=== PATIENT | male | born 1975 | race Caucasian/White ===

== ENCOUNTER 2023-12-27 22:43 | Emergency (ER) | payer OTHER, SELFPAY ==
[2023-12-27 23:05] VITALS: BP 127/83
[2023-12-28 00:08] LABS: % Basophils 0.7 % (0-2); % Eosinophils 1.6 % (0-6); % Immature Granulocytes 0.3 % (0-0.5); % Lymphocytes 28.5 % (20.5-51.1); % Monocytes 10.5 % (1.7-9.3); % Neutrophils 58.4 % (42.2-75.2); Absolute Basophils 0.1 10^3/uL (0-0.2); Absolute Eosinophils 0.1 10^3/uL (0-0.7); Absolute Lymphocytes 2.2 10^3/uL (1.2-3.4); Absolute Monocytes 0.8 10^3/uL (0.1-0.6); Absolute Neutrophils 4.5 10^3/uL (1.4-6.5); Hematocrit 39.7 % (39.0-52.0); Hemoglobin 13.8 g/dL (13.0-18.0); Mean Corp Hgb Conc. 34.8 g/dL (33.0-37.0); Mean Corpuscular Hgb 28.7 pg (27.0-31.0); Mean Corpuscular Volume 82.5 fL (80.0-94.0); Mean Platelet Volume 9.3 fL (7.4-10.4); Nucleated Red Blood Cells % 0 % (-); Platelet Count 237 10^3/uL (130-400); Red Blood Cell Count 4.81 10^6/uL (4.70-6.10); Red Cell Dist. Width 12.5 % (11.5-14.5); White Blood Cell Count 7.7 10^3/uL (4.8-10.8)
[2023-12-28 00:09] LABS: Urine Albumin Negative (Neg - Trace); Urine Bilirubin Negative (Negative); Urine Character Clear (Clear); Urine Color Yellow; Urine Glucose Negative (Negative); Urine Ketone Negative (Negative); Urine Leukocyte Negative (Negative); Urine Nitrite Negative (Negative); Urine Occult Blood Negative (Negative); Urine Urobilinogen 1+ (Neg - 1+)
[2023-12-28 00:26] LABS: ALT (SGPT) 23 U/L (0-50); AST (SGOT) 29 U/L (17-59); Albumin 5.1 g/dl (3.5-5.0); Alkaline Phosphatase 46 U/L (38-126); Blood Urea Nitrogen 17 mg/dl (9-20); Calcium 10.2 mg/dl (8.4-10.2); Carbon Dioxide 30 mmol/L (22-30); Chloride 100 mmol/L (98-107); Glucose 106 mg/dl (70-99); Potassium 3.8 mmol/L (3.5-5.1); Sodium 141 mmol/L (135-145); Total Bilirubin 0.9 mg/dl (0.2-1.3); Total Protein 7.6 g/dl (6.3-8.2); eGFR > 60.00
--- NOTE | 2023-12-28 00:37 | ED.GENMED ---
History of Present Illness
General
Chief Complaint: Anxiety
Time Seen by Provider: 12/28/23 00:37
History of Present Illness
History of Present Illness:
TIME OF INITIAL ENCOUNTER: 12:40 AM
HPI: The patient is been feeling anxious over the past 10 days. He has a sensation of throat closure, chest discomfort. He has been pacing at nighttime. He cannot sleep tonight. He did take a Xanax 0.25 mg as prescribed by his primary care
doctor at about 5 PM tonight but this did not has any effect. He has no increased amount of stressors.
EXAM:
GENERAL: Well appearing in no distress
HEENT: Moist oral mucosa
CARDIOVASCULAR: No murmurs, normal heart rate, regular rhythm, No chest wall tenderness
PULMONARY: No respiratory distress, breath sounds are clear and equal
ABDOMEN: Soft with no peritoneal signs, no tenderness
NEUROLOGIC: Excellent strength all extremities, no coordination deficits
PSYCHIATRIC: Appropriate mental status, normal insight and judgement, he does not appear particularly anxious
EXTREMITIES: Nontender, no edema, moves all extremities equally
SKIN: No rash, no lesions
NUMBER AND COMPLEXITY OF PROBLEMS ADDRESSED AT THE ENCOUNTER
� Chronic conditions affecting care: No significant past medical history
� Acute Exacerbation and/or Progression of Chronic Illness: This is an acute problem
� Differential Diagnosis includes: Anxiety, insomnia, lab abnormality
AMOUNT AND/OR COMPLEXITY OF DATA TO BE REVIEWED AND ANALYZED
� I performed an independent evaluation of and my interpretation is:
EKG: Sinus 65, normal axis, no acute ST abnormality
CT:
X-rays:
Laboratory Studies: CBC and chemistries unremarkable, urinalysis negative
Other:
� Review of other/old records: I reviewed records, the patient had colonoscopy in 2022
� Clinical information was obtained by an independent historian: I spoke to at bedside
� Prescriptions/Medications Considered but not given:
� Further testing considered but not performed:
RISK OF COMPLICATIONS AND/OR MORBIDITY OR MORTALITY OF PATIENT MANAGEMENT
� Social determinants of health affecting care: Lives at home
� Discussion with other providers:
� Escalation of care including admission/observation vs risk of discharge considered: The patient just darted taking Zoloft and describes symptoms consistent with anxiety. Will give a one-time dose of higher dose Xanax now.
Recommended [id number] sleep aid at home. Reassurance given that his blood work and EKG are normal.
ANY OTHER UPDATES:
Phy Exam
Physical Exam
Physical Exam:
See HPI
Course
Orders/Labs/Results
Orders:
Orders
12/27/23 23:46
Electrocardiogram (*1) Urgent
Reason for Study: Hypertension, Benign
Cardiology Consult: Unknown
EKG- Treatment ONCE
12/27/23 23:56
Complete Blood Count/With Diff Urgent
Comprehensive Metabolic Panel Urgent
Urinalysis Reflex To Culture Urgent
Date Specimen was Collected: 12/27/23
Time Specimen was Collected: 23:46
12/28/23 00:55
Alprazolam [Xanax] 1 mg PO NOW STA
Abnormal Lab Results
12/27/23
23:56
Absolute Monos (auto) 0.8 H 10^3/uL
(0.1-0.6)
Monocytes % 10.5 H %
(1.7-9.3)
Glucose 106 H mg/dl
(70-99)
Albumin 5.1 H g/dl
(3.5-5.0)
12/27/23 23:56
12/27/23 23:56
Vital Signs
Initial and Last Documented VS:
Initial Vital Signs
Temp Pulse Resp BP Pulse Ox
98.5 F 75 20 127/83 98
12/27/23 23:05 12/27/23 23:05 12/27/23 23:05 12/27/23 23:05 12/27/23 23:05
Last Documented Vital Signs
Temp Pulse Resp BP Pulse Ox
98.5 F 75 20 127/83 98
12/27/23 23:05 12/27/23 23:05 12/27/23 23:05 12/27/23 23:05 12/27/23 23:05
*Critical Care Note
Total Time (30-74mins, 75-104mins- exclusive of procedures): Not Applicable
ED Attending Note
-
Portions of this chart may have been created with voice recognition software.� Occasional wrong word or��sound alike� substitutions may have occurred due to the inherent limitations of voice recognition software.
Discharge Plan
Departure
Patient Disposition: Home (Routine Discharge)
Date of Disposition: 12/28/23
Time of Disposition: 00:55
Patient with high blood pressure during this ER visit?: Yes
Discharge Problem:
Anxiety
Instructions: Anxiety, Adult (DC), Generalized Anxiety Disorder (DC)
Referrals:
Te Goff MD [Family Provider] -
Activity Restrictions/Additional Instructions:
Continue Zoloft as it takes a few weeks for it to kick in. We did give a one-time dose of Xanax 1 mg. I do not recommend taking these Medications on a daily basis as there is a high risk of addiction potential. Consider taking [id number]
Unisom (doxylamine) each night to help sleep. Basic blood work is normal. EKG is normal.
Interventions
Interventions:
*Risk Screen - Suicide Last Done: 12/27/23 22:44
*General Assessment Last Done: 12/27/23 23:05
*Neglect/Abuse Screening Last Done: 12/27/23 23:05
ED- Fall Risk Assessment Last Done: 12/27/23 23:05
*ED COVID-19 Vaccine History Last Done: 12/27/23 23:05
Discharge Date and Time
Print Language: NEPALI
[2023-12-28 01:16] VITALS: BP 123/78
[2023-12-28] MEDS: XANAX 1 MG PO (01:22)
[2023-12-28 01:27] VITALS: BP 147/97
== END 2023-12-28 01:28 | disposition home or self-care (01) ==
LOC: EMR 22:43
PROVIDERS: Emergency Medicine; EMERGENCY PHYSICIAN Emergency Medicine; FAMILY PHYSICIAN Family Medicine
DX: F41.9 Anxiety disorder, unspecified (principal); I10 Essential (primary) hypertension
CPT/HCPCS: 99283; 80053; 81003; 85025; 93005